=== PATIENT | female | born 1950 | race Caucasian/White ===

== ENCOUNTER → 2018-08-15 | Outpatient (CLI) | payer OTHER ==
--- NOTE | 2018-08-15 16:24 | PCVCIMAG ---
APPROVED REPORT Study performed: 08/15/2018 15:03:28 EXAM: Comprehensive 2D, Doppler, and color-flow Echocardiogram Patient Location: Echo lab Status: routine BSA: 1.58 HR: 64 bpmBP: 118/72 mmHg Rhythm: NSR Other Information Study Quality: Adequate Risk Factors: Cardiac Risk Factors: HTN, Hyperlipidemia Indications Murmur aortic stenosis 2D Dimensions IVSd: 10.74 (7-11mm)LVOT Diam: 19.57 (18-24mm) LVDd: 34.33 mm PWd: 9.91 (7-11mm)Ascending Ao: 33.85 (22-36mm) LVDs: 24.95 (25-40mm) Left Atrium: 37.90 (27-40mm) Aortic Root: 30.47 mm LV Single Plane 4CH: 65.04 % LV Single Plane 2CH: 62.08 % Biplane EF: 64.1 % Volumes Left Atrial Volume (Systole) Single Plane 4CH: 53.24 mLSingle Plane 2CH: 65.24 mL LA ESV Index: 39.00 mL/m2 Aortic Valve AoV Peak Shan.: 3.34 m/s AO Peak Gr.: 44.56 mmHgLVOT Max P.75 mmHg AO Mean Gr.: 27.18 mmHgLVOT Mean P.89 mmHg AO V2 Mean: 2.49 m/sLVOT Max V: 1.13 m/s AO V2 VTI: 85.18 cmLVOT Mean V: 0.81 m/s JOSE (VTI): 1.00 [id number] V1 VTI: 28.29 cm JOSE Vmax: 1.02 cm2 AI Vmax: 4.69 m/sSV (LVOT): 85.01 mL AI Real: 2.75 m/s2 AI PHT: 494.08 ms Mitral Valve E/A Ratio: 0.6 MV Decel. Time: 318.03 ms MV E Max Shan.: 0.53 m/s MV A Shan.: 0.82 m/s IVRT: 110.73 ms Pulmonary Valve PV Peak Shan.: 1.15 m/sPV Peak Gr.: 5.32 mmHg Pulmonary Vein P Vein S: 0.34 m/sP Vein A: 0.35 m/s P Vein D: 0.40 m/sP Vein A Dur.: 148.8 msec P Vein S/D Ratio: 0.85 Tricuspid Valve TR Peak Shan.: 2.55 m/s TR Peak Gr.: 25.95 mmHg TV Vmax: 0.55 m/s Left Ventricle The left ventricle is normal size. There is normal LV segmental wall motion. There is normal left ventricular wall thickness. Left ventricular systolic function is normal. The left ventricular ejection fraction is within the normal range. LVEF is 60-65%. Grade I - abnormal relaxation pattern. Right Ventricle The right ventricle is normal size. The right ventricular systolic function is normal. Atria The left atrium size is normal. The right atrium size is normal. Aortic Valve The aortic valve is moderately calcified. The aortic valve is probably trileaflet. Mild to moderate aortic regurgitation. There is moderate valvular aortic stenosis. Calculated aortic valve area is 1 cm2 with maximum pressure gradient of 45 mmHg and mean pressure gradient of 27 mmHg. Mitral Valve The mitral valve is normal in structure. Trace mitral regurgitation. No evidence of mitral valve stenosis. Tricuspid Valve The tricuspid valve is normal in structure. Mild tricuspid regurgitation with PAP of 33 mmHg. Pulmonic Valve The pulmonary valve is normal in structure. Trace pulmonic regurgitation. Great Vessels The aortic root is normal in size. IVC is normal in size and collapses >50% with inspiration. Pericardium There is no pericardial effusion. There is no pleural effusion. <Conclusion> The left ventricle is normal size. LVEF is 60-65%. The aortic valve is moderately calcified. The aortic valve is probably trileaflet. Mild to moderate aortic regurgitation. There is moderate valvular aortic stenosis. Calculated aortic valve area is 1 cm2 with maximum pressure gradient of 45 mmHg and mean pressure gradient of 27 mmHg. The mitral valve is normal in structure. Trace mitral regurgitation. The tricuspid valve is normal in structure. Mild tricuspid regurgitation with PAP of 33 mmHg. The pulmonary valve is normal in structure. Trace pulmonic regurgitation. There is no pericardial effusion. There is no pleural effusion.
== END | disposition home or self-care (01) ==
LOC: PCVCIMAG 14:59
PROVIDERS: ATTEND Internal Medicine
DX: I08.2 Rheumatic disorders of both aortic and tricuspid valves (principal); R01.1 Cardiac murmur, unspecified
CPT/HCPCS: 93306